=== PATIENT | female | born 1980 | race Hispanic/Latino ===

== ENCOUNTER → 2019-09-15 | Outpatient (CLI) | payer BC ==
--- NOTE | 2019-09-15 16:49 | Diagnostic Imaging Report ---
Exam: KUB - 2 views Indication: Abdominal pain. Comparison: <None.> Findings: Nonobstructive bowel gas pattern. No evidence of free intraperitoneal air. No evidence of abnormal calcification. No acute bony abnormality. Impression: No acute radiographic abnormality. Signed by: Ignacia Valentine MD on 09/15/2019 4:46 PM
== END ==
LOC: RAD 15:32
PROVIDERS: ATTEND Internal Medicine
DX: R10.9 Unspecified abdominal pain (principal)
CPT/HCPCS: 74018; 81025

== ENCOUNTER → 2022-08-27 | Outpatient (CLI) | payer BC | LOC: MAMMO 15:45 | PROVIDERS: ATTEND Internal Medicine | DX: Z12.31 Encounter for screening mammogram for malignant neoplasm of breast (principal) | CPT/HCPCS: 77067 ==

== ENCOUNTER → 2024-12-14 | Outpatient (REF) | payer OTHER ==
[~2024-12-14] MED LIST: GADOBENATE DIMEGLUMINE 1 ML IV ONE
== END ==
LOC: MRI 08:21
PROVIDERS: ATTEND Ophthalmology
DX: H53.47 Heteronymous bilateral field defects (principal); H47.213 Primary optic atrophy, bilateral
CPT/HCPCS: 70543; 70553; A9577